=== PATIENT | female | born 1995 | race Caucasian/White ===

== ENCOUNTER 2022-07-16 18:27 | Emergency (ER) | payer OTHER, SELFPAY ==
[2022-07-16 19:00] VITALS: BP 123/86; PULSE 92; RESP 18; TEMP 36.2; O2SAT 98; BMI 23.7
--- NOTE | 2022-07-16 19:15 | ED_ITS ---
HPI - General Adult General Time Seen by Provider: 19:16 Date Seen: 07/16/22 Chief complaint: Ear/Nose/Throat Problem Stated complaint: Throat pain, Possible infection in mouth and neck Time Seen by Provider: 07/16/22 19:01 Source: patient Mode of arrival: ambulatory Limitations: no limitations History of Present Illness HPI narrative: 27-year-old female who comes in today with complaints of throat and neck pain as well as upper chest pain. This started 4 days ago. She has pain with swallowing. She denies any voice changes. Denies swelling of the lips or ton stella. No fever chills. Nausea without vomiting. No runny nose or cough. She says it feels like it hurts to breathe, no chest pain. She has tried antihistamines for her symptoms. She denies any fall or head injury, no ill contacts. Related Data Allergies Allergy/AdvReac Type Severity Reaction Status Date / Time Iodinated Contrast Media Allergy Verified 07/16/22 18:59 latex Allergy Verified 07/16/22 18:59 prochlorperazine Allergy Verified 07/16/22 18:59 Review of Systems Status of ROS: Reports: 10 or more systems reviewed and unremarkable except as noted in History and below Exam Narrative: Exam Narrative: General: Well-developed and well-nourished, no acute distress Head: Atraumatic and normocephalic Eyes: Pupils are equal reactive, extraocular motions intact, conjunctiva clear ENT: External nose and ears are normal, posterior pharynx without erythema or exudate. No trismus, no soft palate or tonsillar asymmetry Neck: Mild right-sided cervical adenopathy, no álvaro swelling. No tracheal deviation, no tenderness with palpation of the trachea or cricoid. Full spontaneous range of motion the neck. Heart: Regular rate and rhythm no murmurs or thrills Lungs: Clear to auscultation bilaterally without wheezes or crackles. No chest wall pain. Abdomen: Soft, nontender, nondistended with active bowel sounds Musculoskeletal: No tenderness, deformity, or edema Neurologic: Awake, alert, and oriented x3, no gross focal neurologic deficits, cranial nerves intact as tested Psych: Mood and affect are appropriate Skin: No rashes Const: Vital Signs, click to edit/add: Vital Signs - 24 hr 07/16/22 19:00 Temperature 97.2 F L Pulse Rate [Pulse Oximeter] 92 Respiratory Rate 18 Pulse Oximetry 98 Oxygen Delivery Me thod Room Air Course Course Hospital Course: Patient seen and examined, prior records are reviewed. Patient comes in with throat pain and right-sided neck pain. Some cervical adenopathy more prominent on the right and some tenderness. No laryngeal or cricoid tenderness to suggest deeper space infection, full spontaneous range of motion the neck without visible swelling of the soft tissues. Trachea is midline, no hoarse voice or stridor. Lungs are clear. No chest wall tenderness. No abdominal tenderness. Labs are ordered along with Toradol and Decadron. Reevaluation(s) Reevaluation #1: Labs are reassuring including normal white blood cell count, no Monospot and strep negative. Patient will be started on Augmentin as well as short course of steroid in follow-up with primary care. Time: 20:10 Vital Signs Vital signs: Initial Vital Signs Temperature 97.2 F L 07/16/22 19:00 Temperature Source Temporal Artery Scan 07/16/22 19:00 Pulse Rate 92 07/16/22 19:00 Pulse Rhythm 07/16/22 19:00 Respiratory Rate 18 07/16/22 19:00 Pulse Oximetry 98 07/16/22 19:00 Oxygen Delivery Method 07/16/22 19:00 Vital Signs Temperature 97.2 F L 07/16/22 19:00 Pulse Rate 92 07/16/22 19:00 Respiratory Rate 18 07/16/22 19:00 Pulse Oximetry 98 07/16/22 19:00 Oxygen Delivery Method 07/16/22 19:00 Temperature 97.2 F L 07/16/22 19:00 Pulse Rate 92 07/16/22 19:00 Respiratory Rate 18 07/16/22 19:00 Pulse Oximetry 98 07/16/22 19:00 Oxygen Delivery Method 07/16/22 19:00 Medical Decision Making Medical Records Medical records reviewed: Yes I reviewed the patient's medical records Lab Data Lab results reviewed: Yes I reviewed the patient's lab results Labs: Lab Results 07/16/22 07/16/22 07/16/22 Range/Units 19:28 19:28 19:28 WBC 9.03 (4.50-11.00) K/uL RBC 4.41 (4.00-5.20) m/uL Hgb 13.0 (12.0-16.0) gm/dL Hct 39.0 (33.0-51.0) % MCV 88 (80-100) fL MCH 30 (26-34) pg MCHC 33 (32-36) gm/dL RDW Coeff of Santosh 13.7 (11.5-15.5) % Plt Count 373 (140-440) K/uL Neut % (Auto) 53.4 (42.0-72.0) % Lymph % (Auto) 35.9 (20-44) % [place] % (Auto) 9.0 (0.0-11.0) % Eos % (Auto) 1.3 (0.0-7.0) % Baso % (Auto) 0.1 (0.0-3.0) % Neut # (Auto) 4.82 (1.7-7.0) K/uL Lymph # (Auto) 3.24 H (0.90-2.90) K/uL [place] # (Auto) 0.80 (0.00-0.90) K/UL Eos # (Auto) 0.12 (0.00-0.50) K/uL Baso # (Auto) 0.01 (0.00-0.30) K/uL Abs Immat Gran (auto) 0.03 (0.00-0.30) K/uL Imm/Tot Granulo (auto) 0.3 % Sodium 137 (135-149) mmol/L Potassium 3.8 (3.6-5.1) mmol/L Chloride 102 (96-114) mmol/L Carbon Dioxide 25 (20-32) mmol/L BUN 12 (5-24) mg/dL Creatinine 0.6 (0.5-1.5) mg/dL Estimated Creat Clear 114.44 Estimated GFR 125 ml/min Glucose 91 (60-115) mg/dL Calcium 9.2 (8.4-10.6) mg/dL Monoscreen Negative (Negative) Group A Strep DNA (Not Detectd) 07/16/22 Range/Units 19:28 WBC (4.50-11.00) K/uL RBC (4.00-5.20) m/uL Hgb (12.0-16.0) gm/dL Hct (33.0-51.0) % MCV (80-100) fL MCH (26-34) pg MCHC (32-36) gm/dL RDW Coeff of Santosh (11.5-15.5) % Plt Count (140-440) K/uL Neut % (Auto) (42.0-72.0) % Lymph % (Auto) (20-44) % [place] % (Auto) (0.0-11.0) % Eos % (Auto) (0.0-7.0) % Baso % (Auto) (0.0-3.0) % Neut # (Auto) (1.7-7.0) K/uL Lymph # (Auto) (0.90-2.90) K/uL [place] # (Auto) (0.00-0.90) K/UL Eos # (Auto) (0.00-0.50) K/uL Baso # (Auto) (0.00-0.30) K/uL Abs Immat Gran (auto) (0.00-0.30) K/uL Imm/Tot Granulo (auto) % Sodium (135-149) mmol/L Potassium (3.6-5.1) mmol/L Chloride (96-114) mmol/L Carbon Dioxide (20-32) mmol/L BUN (5-24) mg/dL Creatinine (0.5-1.5) mg/dL Estimated Creat Clear Estimated GFR ml/min Glucose (60-115) mg/dL Calcium (8.4-10.6) mg/dL Monoscreen (Negative) Group A Strep DNA NOT DETECTED (Not Detectd) Discharge Plan Discharge Clinical Impression: Anterior cervical adenopathy, Pharyngitis Patient Disposition: Home, Self-Care Condition: Stable Instructions: Pharyngitis (ED), Lymphadenopathy (ED) Additional Instructions: Salt water gargles for sore throat. Liquid diet if having pain with swelling. Make sure you stay hydrated! Tylenol or ibuprofen as needed for pain, take antibiotics and steroid as prescribed Activity Level: No Restrictions Discharge Diet: Regular Follow Up/Referrals: Jonathan Rubalcava MD [Staff Physician] - Stand Alone Forms: [id number] Info Instructions
[2022-07-16 19:30] VITALS: PULSE 104; O2SAT 100
[2022-07-16] MEDS: dexAMETHasone 10 MG/ML inj IVP (19:39)
[2022-07-16] MEDS: KETOROLAC 15 MG/ML inj IVP (19:39)
[2022-07-16 19:42] LABS: Basophils Absolute Auto 0.01 K/uL (0.00-0.30); Basophils Percent Auto 0.1 % (0.0-3.0); Eosinophils Absolute Auto 0.12 K/uL (0.00-0.50); Eosinophils Percent Auto 1.3 % (0.0-7.0); Immature Granulocytes Abs Auto 0.03 K/uL (0.00-0.30); Immature Granulocytes Pct Auto 0.3 %; Lymphocytes Absolute Auto 3.24 K/uL (0.90-2.90); Lymphocytes Percent Auto 35.9 % (20-44); Mean Corpuscular HGB Conc 33 gm/dL (32-36); Mean Corpuscular Hemoglobin 30 pg (26-34); Mean Corpuscular Volume 88 fL (80-100); Neutrophils Absolute Auto 4.82 K/uL (1.7-7.0); Neutrophils Percent Auto 53.4 % (42.0-72.0); Platelet Count* 373 K/uL (140-440); RDW Coefficient of Variation % 13.7 % (11.5-15.5); Red Blood Count 4.41 m/uL (4.00-5.20); White Blood Count* 9.03 K/uL (4.50-11.00)
[2022-07-16 19:46] LABS: Slide Review Reflex No
[2022-07-16 19:54] LABS: Chloride* 102 mmol/L (96-114); Potassium* 3.8 mmol/L (3.6-5.1); Sodium* 137 mmol/L (135-149)
[2022-07-16 19:57] LABS: Blood Urea Nitrogen* 12 mg/dL (5-24); Calcium* 9.2 mg/dL (8.4-10.6); Carbon Dioxide* 25 mmol/L (20-32); Creatinine* 0.6 mg/dL (0.5-1.5); Est. Creatinine Clearance* 114.44; Estimated Glomerular Filt Rate 125 ml/min; Glucose* 91 mg/dL (60-115); Mono Screen* Negative (Negative)
[2022-07-16 20:05] LABS: Strep A DNA Probe* NOT DETECTED (Not Detectd)
[2022-07-16 20:20] VITALS: BP 122/81; PULSE 101; O2SAT 100
== END 2022-07-16 20:30 | disposition home or self-care (01) ==
PROVIDERS: Emergency Provider Family Medicine
DX: J02.9 Acute pharyngitis, unspecified (principal); L04.0 Acute lymphadenitis of face, head and neck
CPT/HCPCS: 36415; 80048; 85025; 86308; 87651; 96374; 96375; 99283; 99284; J1100; J1885